=== PATIENT | male | born 1970 | race African-American/Black ===

== ENCOUNTER 2019-01-13 07:37 | Emergency (ER) | payer SELFPAY ==
[2019-01-13] MEDS ORDERED: FOLIC ACID INJECTION - 1 MG, THIAMINE HCL 100 MG, MULTIVIT INJECTION ADULT 10 ML in SOD... IVPB ONE (08:00)
[2019-01-13 08:08] VITALS: BP 98/62; PULSE 89; TEMP 97.3; BMI 22.8
--- NOTE | 2019-01-13 08:23 | PDOC ---
History of Present Illness - General Chief Complaint: Altered Mental Status Stated Complaint: FALL/VOMITING Time Seen by Provider: 01/13/19 07:45 - History of Present Illness Initial Comments: 01/13/19 08:17 48M with pmh of seizure and brain tumor s/p surgery [facility]wny from a [facility] after episode of unwitnessed possible seizure after the patient was found on the ground with vomit on the floor. Patient states that he doesn't take any medication for his seizure, last episode was remote, back when he had surgery in [place]. As per EMS the patient is alert but orientedx1. Asked to be brought to "[facility]" where he is usually treated. Only current complaint is that he is cold and hungry. Past History - Past Medical History Allergies/Adverse Reactions: Allergies Allergy/AdvReac Type Severity Reaction Status Date / Time No Known Allergies Allergy Verified 01/13/19 07:44 Home Medications: Ambulatory Orders NK [No Known Home Medication] 01/13/19 COPD: No Other medical history: brain tumor - Surgical History Appendectomy: Yes Neurologic Surgery: Yes - Immunization History Immunization Up to Date: Yes - Suicide/Smoking/Psychosocial Hx Smoking History: Current every day smoker Number of Cigarettes Smoked Daily: 10 Information on smoking cessation initiated: No Hx Alcohol Use: No Drug/Substance Use Hx: No Review of Systems - Review of Systems Able to Perform ROS?: Yes Is the patient limited Tanzanian proficient: No Constitutional: No: Symptoms Reported HEENTM: No: Symptoms Reported Respiratory: No: Symptoms reported Cardiac (ROS): No: Symptoms Reported ABD/GI: No: Symptoms Reported : No: Symptoms Reported Musculoskeletal: No: Symptoms Reported Integumentary: No: Symptoms Reported Neurological: No: Symptoms reported All Other Systems: Reviewed and Negative *Physical Exam - Vital Signs Last Vital Signs Temp Pulse Resp BP Pulse Ox 97.3 F L 89 18 98/62 98 01/13/19 07:44 01/13/19 07:44 01/13/19 07:44 01/13/19 07:44 01/13/19 07:44 - Physical Exam General Appearance: Yes: Nourished, Disheveled HEENT: positive: EOMI, XENA, Normal ENT Inspection Respiratory/Chest: positive: Lungs Clear, Normal Breath Sounds. negative: Chest Tender, Respiratory Distress Cardiovascular: positive: Regular Rhythm, Regular Rate, S1, S2 Gastrointestinal/Abdominal: positive: Normal Bowel Sounds, Flat. negative: Tender Musculoskeletal: positive: Normal Inspection Extremity: positive: Normal Capillary Refill, Normal Inspection, Normal Range of Motion Integumentary: positive: Normal Color, Dry, Warm Neurologic: positive: Fully Oriented, Alert, Normal Response, Motor Strength 5/5 , Depressed Affect ED Treatment Course - LABORATORY CBC & Chemistry Diagram: 01/13/19 08:02 01/13/19 08:02 - ADDITIONAL ORDERS Additional order review: Laboratory Results 01/13/19 07:48 POC Glucometer 120 01/13/19 07:48 POC Glucometer 120 - RADIOLOGY Radiology Studies Ordered: Category Date Time Status HEAD CT WITHOUT CONTRAST [CT] Stat CT Scan 01/13/19 08:15 Ordered CHEST X-RAY PORTABLE* [RAD] Stat Radiology 01/13/19 08:00 Ordered Medical Decision Making - Medical Decision Making 01/13/19 08:38 48m with h/o seizures presents to the ed after unwitnessed episodes found on the floor. Patient now a&o x3 intracerebral mass vs bleed vs tox vs metabolic vs epilepsy. fingerstick within normal limits. Will r/o mass vs bleed with head CT. Rehydration with banana bag. 01/13/19 09:55 Ct head has no acute processes. All labs no acute findings. Will provide patient with neurology follow up and discharge. 01/13/19 09:57 *DC/Admit/Observation/Transfer Diagnosis at time of Disposition: Seizure-like activity - Discharge Dispostion Disposition: HOME Condition at time of disposition: Improved Decision to Admit order: No - Referrals Referrals: Trevon Morales MD [Primary Care Provider] - Yimi Yanez MD [Staff Physician] - - Patient Instructions Printed Discharge Instructions: Seizure Disorder -- Adult Additional Instructions: Follow up with Dr. Yanez, neurology. Come back to the emergency department for any new, worsening or concerning symptom. - Post Discharge Activity
[2019-01-13 08:37] LABS: BASO % 0.5 % (0-2.0); EOS % 1.8 % (0-4.5); HEMATOCRIT 40.3 % (35.4-49); HEMOGLOBIN 13.7 GM/dL (11.7-16.9); LYMPH % 31.4 % (8-40); MCH 29.7 pg (25.7-33.7); MEAN CELL VOLUME 87.3 fl (80-96); MEAN PLT VOLUME 9.9 fl (7.5-11.1); MONO % 14.2 % (3.8-10.2); NEUT % 52.1 % (42.8-82.8); PLATELET COUNT 158 K/MM3 (134-434); RBC 4.61 M/mm3 (4.00-5.60); RDW 14.8 % (11.9-15.9); WHITE BLOOD COUNT 7.8 K/mm3 (4.0-10.0)
[2019-01-13 09:32] LABS: ALBUMIN 3.4 g/dl (3.4-5.0); ALK PHOS 54 U/L (45-117); ANION GAP 5 MMOL/L (8-16); BILIRUBIN,TOTAL 0.5 mg/dL (0.2-1); BLOOD UREA NITROGEN 13 mg/dL (7-18); CALCIUM 9.2 mg/dL (8.5-10.1); CHLORIDE 103 mmol/L (98-107); CO2 31 mmol/L (21-32); CREATININE 1.3 mg/dL (0.55-1.3); GLUCOSE,RANDOM 104 mg/dL (74-106); POTASSIUM 4.3 mmol/L (3.5-5.1); SGOT/AST 31 U/L (15-37); SGPT/ALT 40 U/L (13-61); SODIUM 140 mmol/L (136-145); TOT PROT 6.4 g/dl (6.4-8.2)
--- NOTE | 2019-01-13 09:56 | PDOC ---
Attending Attestation - Resident Resident Name: BarnesIlir - ED Attending Attestation I have performed the following: I have examined & evaluated the patient, The case was reviewed & discussed with the resident, I agree w/resident's findings & plan, Exceptions are as noted - HPI HPI: 01/13/19 09:55 Reviewed Residents HPI - Physicial Exam PE: 01/13/19 09:55 Reviewed Residents PE - Medical Decision Making 01/13/19 09:55 48 years old from [facility] undomic[facility] presents with questionable seizure this morning patient was found down when EMS arrived apparently was AO 1 currently in the emergency Department AO 3 with a normal neurologic examination no complaints at this time does have remote seizure history status post bilateral craniotomy for brain tumors not currently on any antiepileptics Laboratory analysis unremarkable CT head with no acute findings patient provided with clinic and neurology follow-up Findings, the need for follow-up and strict return instructions discussed with patient.
[2019-01-13] MEDS ORDERED: ACETAMINOPHEN 325 MG TABLET (FP) PO ONE (11:09)
[2019-01-13] MEDS ORDERED: ACETAMINOPHEN 325 MG TABLET (FP) ONE (11:11)
== END 2019-01-13 11:00 | disposition home or self-care (01) ==
LOC: JER 07:37
PROC: 3E033GC Introduction of Other Therapeutic Substance into Peripheral Vein, Percutaneous Approach (ICD-10-PCS; principal; 2019-01-13)
DX: R56.9 Unspecified convulsions (principal); Z59.0 Homelessness
CPT/HCPCS: 36415; 70450-TC; 71045-TC-FY; 80053; 80307; 82962; 85025; 99283-25; J7030

== ENCOUNTER 2019-04-23 14:58 | Emergency (ER) | payer OTHER ==
[2019-04-23] MEDS ORDERED: SODIUM CHLORIDE 1,000 ML IV STA (15:04)
[2019-04-23] MEDS ORDERED: METOCLOPRAMIDE HCL INJECTION 10 MG/2 ML VIAL IVPUSH ONE (15:04)
--- NOTE | 2019-04-23 15:04 | PDOC ---
Rapid Medical Evaluation Time Seen by Provider: 04/23/19 15:03 Medical Evaluation: Allergies Allergy/AdvReac Type Severity Reaction Status Date / Time No Known Allergies Allergy Verified 01/13/19 07:44 04/23/19 15:03 I have performed a brief in-person evaluation of this patient. The patient presents with a chief complaint of: diffuse abdominal pain with loose brown stools Pertinent physical exam findings: Abd SNTND. I have ordered the following: labs The patient will proceed to the ED for further evaluation. Discharge Disposition - Diagnosis Abdominal pain - Referrals - Patient Instructions - Post Discharge Activity
[2019-04-23 15:06] VITALS: TEMP 98.5; BMI 24.2
--- NOTE | 2019-04-23 16:49 | PDOC ---
History of Present Illness - General Chief Complaint: Pain, Acute Stated Complaint: ABD. PAIN Time Seen by Provider: 04/23/19 15:03 - History of Present Illness Initial Comments: 04/23/19 16:48 CHIEF COMPLAINT: abdominal pain HISTORY OF PRESENT ILLNESS: 48 yo M with hx of seizure disorder and b/l craniotomy presents to ED with abdominal pain and loose stools since earlier today. C/o headache, and one episode of vomiting 1 hour ago. Patient denies any fevers, chills. Patient reports that he had an IVC filter placed to R inguinal area a few years ago. Denies chest pain but reports SOB. No recent travel or sick contacts. PAST MEDICAL HISTORY: Denies past medical history FAMILY HISTORY: Denies SOCIAL HISTORY: Denies tobacco, alcohol, illicit drug use. SURGICAL HISTORY: Denies ALLERGIES: No known drug allergies REVIEW OF SYSTEMS General/Constitutional: Denies fever or chills. Denies weakness, weight change. HEENT: Denies change in vision. Denies ear pain or discharge. Denies sore throat. Cardiovascular: Denies chest pain or shortness of breath. Respiratory: Denies cough, wheezing, or hemoptysis. Gastrointestinal: Abdominal pain, vomiting, diarrhea since today. Denies rectal bleeding. Genitourinary: Denies dysuria, frequency, or change in urination. Musculoskeletal: Denies joint or muscle swelling or pain. Denies neck or back pain. Skin and breasts: Denies rash or easy bruising. Neurologic: Denies headache, vertigo, loss of consciousness, or loss of sensation. PHYSICAL EXAM General Appearance: Well-appearing, appropriately dressed. No apparent distress. HEENT: EOMI, PERRLA, normal ENT inspection, normal voice, TMs normal, pharynx normal. No conjunctival pallor. No photophobia, scleral icterus. Neck: Supple. Trachea midline. No tenderness, rigidity, carotid bruit, stridor , lymphadenopathy, or thyromegaly. Respiratory/Chest: Lungs CTAB. No shortness of breath, chest tenderness, respiratory distress, accessory muscle use. No crackles, rales, rhonchi, stridor , wheezing, dullness Cardiovascular: RRR. S1, S2. No JVD, murmur, bradycardia, tachycardia. Vascular Pulses: Dorsalis-Pedis (R): 2+, Dorsalis-Pedis (L): 2+ Gastrointestinal/Abdominal: Tenderness to suprapubic region. Normal bowel sounds. Abdomen soft, non-distended. No tenderness or rebound tenderness. No organomegaly, pulsatile mass, guarding, hernia, hepatomegaly, splenomegaly. Lymphatic: No adenopathy, tenderness. Musculoskeletal/Extremities: Normal inspection. FROM of all extremities, normal capillary refill. Pelvis Stable. No CVA tenderness. No tenderness to extremities, pedal edema, swelling, erythema or deformity. Integumentary: Appropriate color, dry, warm. No cyanosis, erythema, jaundice or rash Neurologic: scientific research manager II-XII intact. Fully oriented, alert. Appropriate mood/affect. Motor strength 5/5. No appreciable EOM palsy, facial droop or sensory deficit. Past History - Past Medical History Allergies/Adverse Reactions: Allergies Allergy/AdvReac Type Severity Reaction Status Date / Time No Known Allergies Allergy Verified 04/23/19 15:07 Home Medications: Ambulatory Orders NK [No Known Home Medication] 01/13/19 COPD: No Other medical history: BRAIN TUMOR - Surgical History Appendectomy: Yes Neurologic Surgery: Yes - Immunization History Immunization Up to Date: Yes - Suicide/Smoking/Psychosocial Hx Smoking History: Current every day smoker Number of Cigarettes Smoked Daily: 2 Information on smoking cessation initiated: No Hx Alcohol Use: No Drug/Substance Use Hx: No *Physical Exam - Vital Signs Last Vital Signs Temp Pulse Resp BP Pulse Ox 98.5 F 74 14 116/66 96 04/23/19 15:03 04/23/19 15:03 04/23/19 15:03 04/23/19 15:03 04/23/19 15:03 ED Treatment Course - LABORATORY CBC & Chemistry Diagram: 04/23/19 17:08 04/23/19 17:08 Medical Decision Making - Medical Decision Making 04/23/19 16:55 48 yo M with hx of seizure disorder and b/l craniotomy presents to ED with abdominal pain and loose stools since earlier today. -labs, urine utox 04/23/19 18:29 Labs unremarkable. Patient requesting to leave stating he feels better now. Advised patient to follow up with PCP next week. Advised patient of signs and symptoms for return to ED. Patient verbalized understanding and agrees to plan. *DC/Admit/Observation/Transfer Diagnosis at time of Disposition: Abdominal pain Qualifiers: Abdominal location: generalized Qualified Code(s): R10.84 - Generalized abdominal pain - Discharge Dispostion Disposition: HOME Condition at time of disposition: Stable Decision to Admit order: No - Referrals Referrals: Pierre Yanez MD [Primary Care Provider] - - Patient Instructions Printed Discharge Instructions: DI for Abdominal Pain-Adult - Post Discharge Activity
[2019-04-23] MEDS ORDERED: METOCLOPRAMIDE HCL INJECTION 10 MG/2 ML VIAL ONE (16:57)
[2019-04-23 17:17] LABS: BASO % 1.1 % (0-2.0); EOS % 1.4 % (0-4.5); HEMOGLOBIN 13.7 GM/dL (11.7-16.9); LYMPH % 33.4 % (8-40); MCH 28.4 pg (25.7-33.7); MCHC 33.3 g/dl (32.0-35.9); MEAN CELL VOLUME 85.1 fl (80-96); MEAN PLT VOLUME 8.9 fl (7.5-11.1); MONO % 10.3 % (3.8-10.2); NEUT % 53.8 % (42.8-82.8); PLATELET COUNT 333 K/MM3 (134-434); RBC 4.81 M/mm3 (4.00-5.60); RDW 14.8 % (11.9-15.9); WHITE BLOOD COUNT 7.3 K/mm3 (4.0-10.0)
[2019-04-23 17:52] LABS: ALBUMIN 3.3 g/dl (3.4-5.0); BILIRUBIN,TOTAL 0.3 mg/dL (0.2-1); BLOOD UREA NITROGEN 11.2 mg/dL (7-18); CALCIUM 9.1 mg/dL (8.5-10.1); CREATININE 1.2 mg/dL (0.55-1.3); POTASSIUM 4.9 mmol/L (3.5-5.1); TOT PROT 6.9 g/dl (6.4-8.2)
[2019-04-23 18:38] VITALS: BP 116/72; PULSE 62
== END 2019-04-23 18:54 | disposition home or self-care (01) ==
LOC: JER 14:58
PROC: 3E033GC Introduction of Other Therapeutic Substance into Peripheral Vein, Percutaneous Approach (ICD-10-PCS; principal; 2019-04-23)
DX: R10.9 Unspecified abdominal pain (principal); Z59.0 Homelessness
CPT/HCPCS: 36415; 80053; 83690; 85025; 99283-25; J7030

== ENCOUNTER 2019-08-04 14:59 | Emergency (ER) | payer OTHER ==
[2019-08-04 15:11] VITALS: BMI 29.0
--- NOTE | 2019-08-04 15:11 | PDOC ---
Rapid Medical Evaluation Chief Complaint: Headache Time Seen by Provider: 08/04/19 15:07 Medical Evaluation: Allergies Allergy/AdvReac Type Severity Reaction Status Date / Time No Known Allergies Allergy Verified 04/23/19 15:07 08/04/19 15:07 I have performed a brief in-person evaluation of this patient. The patient presents with a chief complaint of: double vision with shaking/ headaches x 30 mins . States had excision of benign brain tumor 1.5years ago. Pertinent physical exam findings:. a&o x 3 , states too shaky to stand I have ordered the following: CbC, Cmp, , UAtox The patient will proceed to the ED for further evaluation. Discharge Disposition - Diagnosis Headache - Referrals Referrals: Pierre Yanez MD [Primary Care Provider] - - Patient Instructions - Post Discharge Activity
[2019-08-04 15:53] LABS: BASO % 0.7 % (0-2.0); EOS % 2.1 % (0-4.5); HEMATOCRIT 43.3 % (35.4-49); HEMOGLOBIN 14.2 GM/dL (11.7-16.9); LYMPH % 38.4 % (8-40); MCH 28.1 pg (25.7-33.7); MCHC 32.7 g/dl (32.0-35.9); MEAN CELL VOLUME 85.9 fl (80-96); NEUT % 46.8 % (42.8-82.8); PLATELET COUNT 204 K/MM3 (134-434); RBC 5.04 M/mm3 (4.00-5.60); RDW 16.2 % (11.9-15.9); WHITE BLOOD COUNT 6.5 K/mm3 (4.0-10.0)
[2019-08-04 16:27] LABS: ALBUMIN 3.7 g/dl (3.4-5.0); BILIRUBIN,TOTAL 0.3 mg/dL (0.2-1); BLOOD UREA NITROGEN 15.4 mg/dL (7-18); CALCIUM 9.6 mg/dL (8.5-10.1); CREATININE 1.2 mg/dL (0.55-1.3); POTASSIUM 4.9 mmol/L (3.5-5.1); TOT PROT 6.9 g/dl (6.4-8.2)
[2019-08-04 16:32] LABS: URINE APPEARANCE CLEAR; URINE BILIRUBIN NEGATIVE (NEGATIVE); URINE COLOR YELLOW; URINE GLUCOSE (UA) NEGATIVE (NEGATIVE); URINE KETONE NEGATIVE (NEGATIVE); URINE LEUK ESTERASE NEGATIVE (NEGATIVE); URINE NITRITE NEGATIVE (NEGATIVE); URINE PROTEIN NEGATIVE (NEGATIVE)
[2019-08-04] MEDS ORDERED: ACETAMINOPHEN 500 MG TABLET (FP) PO ONE (16:43)
[2019-08-04] MEDS ORDERED: ACETAMINOPHEN 325 MG TABLET (FP) ONE (16:44)
[2019-08-04 16:51] LABS: COCAINE, UR NEGATIVE ng/ml (CUTOFF=300); METHADONE, UR NEGATIVE ng/ml (CUTOFF=300); OPIATES, URI NEGATIVE ng/ml (CUTOFF=300); PHENCYCLIDINE,URINE NEGATIVE ng/ml (CUTOFF=25); URINE AMPHETAMINES NEGATIVE ng/ml (CUTOFF=500); URINE BARBITURATES NEGATIVE ng/ml (CUTOFF=200); URINE BENZODIAZEPINES NEGATIVE ng/ml (CUTOFF=200)
--- NOTE | 2019-08-04 17:35 | PDOC ---
History of Present Illness - General Chief Complaint: Headache Stated Complaint: Headache Time Seen by Provider: 08/04/19 15:07 History Source: Patient Exam Limitations: No Limitations - History of Present Illness Initial Comments: 08/04/19 17:00 49-year-old male presents the ED with complaints of shakiness for the past 2 hours associated with parietal pressure x30 minutes. Patient states history of brain aneurysm with clipping performed 1/2 years ago. Patient denies visual changes, nausea, dizziness, fever or chills. 08/04/19 17:43 Timing/Duration: reports: waxing and waning (For the past 2 days) Severity: Yes: moderate Associated Symptoms: reports: weakness, other (Parietal pressure ) Past History - Travel Traveled outside of the country in the last 30 days: No Close contact w/someone who was outside of country & ill: No - Past Medical History Allergies/Adverse Reactions: Allergies Allergy/AdvReac Type Severity Reaction Status Date / Time No Known Allergies Allergy Verified 04/23/19 15:07 Home Medications: Ambulatory Orders NK [No Known Home Medication] 01/13/19 COPD: No Other medical history: BRAIN ANEURYSM - Surgical History Appendectomy: Yes Neurologic Surgery: Yes - Immunization History Immunization Up to Date: Yes - Psycho Social/Smoking Cessation Hx Smoking History: Unknown if ever smoked Have you smoked in the past 12 months: No Number of Cigarettes Smoked Daily: 2 Information on smoking cessation initiated: No Hx Alcohol Use: No Drug/Substance Use Hx: No Patient Lives Alone: No ( ) Neuro Specific PMHX - Complaint Specific PMHX Migraine: No Neuropathy: No TIA: No Review of Systems - Review of Systems Able to Perform ROS?: Yes Constitutional: No: Symptoms Reported HEENTM: No: Symptoms Reported Respiratory: No: Symptoms reported Cardiac (ROS): Yes: Lightheadedness (Shaky) Neurological: Yes: Headache Endocrine: No: Symptoms Reported Hematologic/Lymphatic: No: Symptoms Reported *Physical Exam - Vital Signs Last Vital Signs Temp Pulse Resp BP Pulse Ox 98.4 F 84 16 124/83 95 08/04/19 15:08 08/04/19 15:08 08/04/19 15:08 08/04/19 15:08 08/04/19 15:08 - Physical Exam General Appearance: Yes: Nourished, Appropriately Dressed. No: Apparent Distress HEENT: positive: Pharynx Normal. negative: Pale Conjunctivae Neck: positive: Supple Respiratory/Chest: positive: Lungs Clear, Normal Breath Sounds. negative: Respiratory Distress, Accessory Muscle Use Cardiovascular: positive: Regular Rhythm, Regular Rate. negative: Murmur Extremity: positive: Normal Inspection Integumentary: positive: Normal Color, Warm, Moist Neurologic: positive: Normal Mood/Affect (Reserved with minimal conversation ), Motor Strength 5/5 (Ambulatory) ED Treatment Course - LABORATORY CBC & Chemistry Diagram: 08/04/19 15:27 08/04/19 15:27 - ADDITIONAL ORDERS Additional order review: Laboratory Results 08/04/19 08/04/19 08/04/19 15:27 15:27 15:27 RBC MCV MCH MCHC Plt Count MPV Absolute Neuts (auto) Neutrophils % Lymphocytes % Eosinophils % Basophils % Nucleated RBC % Sodium 139 Potassium 4.9 Chloride 105 Carbon Dioxide 30 Anion Gap 4 L BUN 15.4 Creatinine 1.2 Est GFR (CKD-EPI)AfAm 82.96 Est GFR (CKD-EPI)NonAf 71.58 Random Glucose 88 Calcium 9.6 Total Bilirubin 0.3 AST 19 ALT 24 Alkaline Phosphatase 57 Total Protein 6.9 Albumin 3.7 Urine Color Yellow Urine Appearance Clear Urine pH 6.0 Ur Specific [place] 1.025 Urine Protein Negative Urine Glucose (UA) Negative Urine Ketones Negative Urine Blood Negative Urine Nitrite Negative Urine Bilirubin Negative Urine Urobilinogen 1.0 Ur Leukocyte Esterase Negative Opiates Screen Negative Methadone Screen Negative Barbiturate Screen Negative Phencyclidine Screen Negative Ur Amphetamines Screen Negative MDMA (Ecstasy) Screen Negative Benzodiazepines Screen Negative Cocaine Screen Negative U Marijuana (THC) Screen Negative 08/04/19 15:27 RBC 5.04 MCV 85.9 MCH 28.1 MCHC 32.7 Plt Count 204 D MPV 10.0 D Absolute Neuts (auto) 3.1 Neutrophils % 46.8 Lymphocytes % 38.4 Eosinophils % 2.1 Basophils % 0.7 Nucleated RBC % 0 Sodium Potassium Chloride Carbon Dioxide Anion Gap BUN Creatinine Est GFR (CKD-EPI)AfAm Est GFR (CKD-EPI)NonAf Random Glucose Calcium Total Bilirubin AST ALT Alkaline Phosphatase Total Protein Albumin Urine Color Urine Appearance Urine pH Ur Specific [place] Urine Protein Urine Glucose (UA) Urine Ketones Urine Blood Urine Nitrite Urine Bilirubin Urine Urobilinogen Ur Leukocyte Esterase Opiates Screen Methadone Screen Barbiturate Screen Phencyclidine Screen Ur Amphetamines Screen MDMA (Ecstasy) Screen Benzodiazepines Screen Cocaine Screen U Marijuana (THC) Screen 08/04/19 15:27 RBC 5.04 MCV 85.9 MCHC 32.7 RDW 16.2 H MPV 10.0 D Neutrophils % 46.8 Lymphocytes % 38.4 Monocytes % 12.0 H Eosinophils % 2.1 Basophils % 0.7 - RADIOLOGY Radiology Studies Ordered: Category Date Time Status HEAD CT WITHOUT CONTRAST [CT] Stat CT Scan 08/04/19 16:42 Ordered - Medications Given in the ED: ED Medications Discontinued Medications Generic Name Dose Route Start Last Admin Trade Name Famq PRN Reason Stop Dose Admin Acetaminophen 975 mg 08/04/19 16:43 08/04/19 16:46 Tylenol - PO 08/04/19 16:44 975 mg ONCE ONE Administration Medical Decision Making - Medical Decision Making 08/04/19 17:03 Chief complaint: Headache to the parietal area x30 minutes which she describes as a sharp pressure patient with a history of brain aneurysm with clipping 1/2 years ago. Patient also states mild shakiness but has resolved upon my arrival Exam: Vital signs stable. No neurofocal deficits. Plan: Basic labs and urine ordered from [facility]. Will add a brain CTA, Tylenol ordered 08/04/19 17:44 Laboratory Tests 08/04/19 08/04/19 08/04/19 15:27 15:27 15:27 WBC 6.5 Hgb 14.2 Hct 43.3 RDW 16.2 H Monocytes % 12.0 H Sodium 139 Potassium 4.9 Chloride 105 Carbon Dioxide 30 Anion Gap 4 L BUN 15.4 Creatinine 1.2 Random Glucose 88 Calcium 9.6 Total Bilirubin 0.3 AST 19 ALT 24 Alkaline Phosphatase 57 Total Protein 6.9 Albumin 3.7 Urine Ketones Urine Blood Urine Nitrite Urine Bilirubin Ur Leukocyte Esterase Opiates Screen Negative Methadone Screen Negative Barbiturate Screen Negative Phencyclidine Screen Negative Ur Amphetamines Screen Negative MDMA (Ecstasy) Screen Negative Benzodiazepines Screen Negative Cocaine Screen Negative U Marijuana (THC) Screen Negative 08/04/19 15:27 WBC Hgb Hct RDW Monocytes % Sodium Potassium Chloride Carbon Dioxide Anion Gap BUN Creatinine Random Glucose Calcium Total Bilirubin AST ALT Alkaline Phosphatase Total Protein Albumin Urine Ketones Negative Urine Blood Negative Urine Nitrite Negative Urine Bilirubin Negative Ur Leukocyte Esterase Negative Opiates Screen Methadone Screen Barbiturate Screen Phencyclidine Screen Ur Amphetamines Screen MDMA (Ecstasy) Screen Benzodiazepines Screen Cocaine Screen U Marijuana (THC) Screen 08/04/19 17:45 Discharge - Discharge Information Problems reviewed: Yes Clinical Impression/Diagnosis: Headache - Follow up/Referral Referrals: Pierre Yanez MD [Primary Care Provider] - - Patient Discharge Instructions - Post Discharge Activity
--- NOTE | 2019-08-04 19:27 | PDOC ---
*Physical Exam - Vital Signs Last Vital Signs Temp Pulse Resp BP Pulse Ox 98.4 F 84 16 124/83 95 08/04/19 15:08 08/04/19 15:08 08/04/19 15:08 08/04/19 15:08 08/04/19 15:08 ED Treatment Course - LABORATORY CBC & Chemistry Diagram: 08/04/19 15:27 08/04/19 15:27 - ADDITIONAL ORDERS Additional order review: Laboratory Results 08/04/19 08/04/19 08/04/19 15:27 15:27 15:27 Sodium 139 Potassium 4.9 Chloride 105 Carbon Dioxide 30 Anion Gap 4 L BUN 15.4 Creatinine 1.2 Est GFR (CKD-EPI)AfAm 82.96 Est GFR (CKD-EPI)NonAf 71.58 Random Glucose 88 Calcium 9.6 Total Bilirubin 0.3 AST 19 ALT 24 Alkaline Phosphatase 57 Total Protein 6.9 Albumin 3.7 Urine Color Yellow Urine Appearance Clear Urine pH 6.0 Ur Specific [place] 1.025 Urine Protein Negative Urine Glucose (UA) Negative Urine Ketones Negative Urine Blood Negative Urine Nitrite Negative Urine Bilirubin Negative Urine Urobilinogen 1.0 Ur Leukocyte Esterase Negative Opiates Screen Negative Methadone Screen Negative Barbiturate Screen Negative Phencyclidine Screen Negative Ur Amphetamines Screen Negative MDMA (Ecstasy) Screen Negative Benzodiazepines Screen Negative Cocaine Screen Negative U Marijuana (THC) Screen Negative 08/04/19 15:27 RBC 5.04 MCV 85.9 MCHC 32.7 RDW 16.2 H MPV 10.0 D Neutrophils % 46.8 Lymphocytes % 38.4 Monocytes % 12.0 H Eosinophils % 2.1 Basophils % 0.7 - Medications Given in the ED: ED Medications Discontinued Medications Generic Name Dose Route Start Last Admin Trade Name Freq PRN Reason Stop Dose Admin Acetaminophen 975 mg 08/04/19 16:43 08/04/19 16:46 Tylenol - PO 08/04/19 16:44 975 mg ONCE ONE Administration Medical Decision Making - Medical Decision Making 08/04/19 21:05 Brain CTA: 1. 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 2. Soft tissue masslike area within the right cavernous sinus region. Recommend further evaluation with MRI of the brain without and with IV contrast or comparison to prior studies if available. 3. Large area of encephalomalacia within the right parietal/occipital/temporal lobes. 4. No definite evidence of intracranial aneurysm 08/04/19 21:[address] guerrero . reviewed CTA. recommends outpatient follow up for incidental finding of a mass/ density. 08/04/19 21:36 08/04/19 21:39 patient reports headache improved after tylenol . will d/c home with tylenol Discharge - Discharge Information Problems reviewed: Yes Clinical Impression/Diagnosis: Headache Qualifiers: Headache type: unspecified Headache chronicity pattern: unspecified pattern Intractability: not intractable Qualified Code(s): R51 - Headache Disposition: HOME - Additional Discharge Information Prescriptions: Acetaminophen [Tylenol -] 500 mg PO Q6H PRN #20 tablet PRN Reason: Pain - Follow up/Referral Referrals: Pierre Yanez MD [Primary Care Provider] - Jose Melendez MD [Staff Physician] - Call tomorrow Ino Guerrero MD [Staff Physician] - Call tomorrow - Patient Discharge Instructions Patient Printed Discharge Instructions: DI for Headache Additional Instructions: It is important that you follow-up with your neurosurgeon as soon as possible. An alternative neurosurgeon's name was given to you. It is also important that you follow-up with a neurologist. Your CAT scan showed that you need additional testing for an outpatient MRI please follow-up with your doctor as soon as possible. Return to the emergency room for any worsening symptoms. - Post Discharge Activity
[2019-08-04 23:53] VITALS: BP 121/75; PULSE 69; TEMP 98.1
== END 2019-08-05 01:08 | disposition home or self-care (01) ==
LOC: JER 14:59
DX: R51 Headache (principal); Z86.79 Personal history of other diseases of the circulatory system; Z59.0 Homelessness
CPT/HCPCS: 36415; 70450-TC; 70496-TC; 80053; 80307; 81003; 85025; 99283-25